=== PATIENT | male | born 1990 | race Caucasian/White ===

== ENCOUNTER 2016-06-26 18:38 | Emergency (ER) | payer OTHER ==
[~2016-06-26] VITALS: Ht 170.2 cm; Wt 95.7 kg
[2016-06-26 18:54] VITALS: BP 113/85
--- NOTE | 2016-06-26 21:12 | NUR ---
PATIENT LEFT WITHOUT BEING SEEN BY . NO FURTHER CARE PROVIDED FOR PATIENT.
== END 2016-06-26 21:12 | disposition left against medical advice (07) ==
LOC: MED 18:38
DX: R00.2 Palpitations (principal); R10.9 Unspecified abdominal pain; Z53.21 Procedure and treatment not carried out due to patient leaving prior to being seen by health care provider